=== PATIENT | female | born 1985 | race Caucasian/White ===

== ENCOUNTER 2016-03-28 03:49 | Emergency (ER) | payer MEDICAID ==
[2016-03-28] MEDS ORDERED: KETOROLAC 30 MG/ML VIAL ONE (04:42)
== END 2016-03-28 07:31 | disposition home or self-care (01) ==
LOC: ER 03:49
DX: S46.819A Strain of other muscles, fascia and tendons at shoulder and upper arm level, unspecified arm, initial encounter (principal); F17.210 Nicotine dependence, cigarettes, uncomplicated; Z79.899 Other long term (current) drug therapy; E11.9 Type 2 diabetes mellitus without complications; E78.00 Pure hypercholesterolemia, unspecified
CPT/HCPCS: 36415; 72072; 80053; 81003; 83690; 84703; 85025; 96374

== ENCOUNTER 2016-03-31 20:18 | Emergency (ER) | payer MEDICAID ==
[2016-03-31] MEDS ORDERED: KETOROLAC 60 MG/2 ML VIAL IM ONE (21:49)
[2016-03-31] MEDS ORDERED: ORPHENADRINE 60 MG/2 ML AMP ONE (21:49)
[2016-03-31] MEDS ORDERED: DEXAMETHASONE 4 MG/ML VIAL ONE (21:50)
== END 2016-03-31 23:09 | disposition home or self-care (01) ==
LOC: ER 20:18
DX: S39.012A Strain of muscle, fascia and tendon of lower back, initial encounter (principal); M54.41 Lumbago with sciatica, right side; Z79.899 Other long term (current) drug therapy; F17.210 Nicotine dependence, cigarettes, uncomplicated; F31.9 Bipolar disorder, unspecified; E78.00 Pure hypercholesterolemia, unspecified; E11.9 Type 2 diabetes mellitus without complications
CPT/HCPCS: 96372